=== PATIENT | female | born 1990 | race African-American/Black ===

== ENCOUNTER 2021-09-01 16:43 | Emergency (ER) | payer OTHER ==
[~2021-09-01] VITALS: Ht 160 cm; Wt 96.2 kg
[2021-09-01 16:44] VITALS: BP 110/70
== END 2021-09-01 21:41 | disposition home or self-care (01) ==
LOC: ER 16:43
DX: J06.9 Acute upper respiratory infection, unspecified (principal); J40 Bronchitis, not specified as acute or chronic; H92.01 Otalgia, right ear; Z20.822 Contact with and (suspected) exposure to COVID-19
CPT/HCPCS: 36415; 71045; 87070; 87804; 87880